=== PATIENT | female | born 1990 | race Caucasian/White ===

== ENCOUNTER 2017-06-03 11:17 | Inpatient (IN) | payer OTHER ==
[2017-06-03 12:00] VITALS: BP 113/51
[2017-06-03 12:15] LABS: BILIRUBIN NEGATIVE (NEGATIVE); BLOOD NEGATIVE (NEGATIVE); CLARITY SL CLOUDY (CLEAR); COLOR YELLOW (YELLOW); GLUCOSE NEGATIVE (NEGATIVE); KETONE NEGATIVE (NEGATIVE); LEUKO ESTERASE TRACE (NEGATIVE); NITRITE NEGATIVE (NEGATIVE); PH 8.5 (5.0-9.0); PROTEIN NEGATIVE (NEGATIVE); UROBILINOGEN 0.2 E.U./dl (0.2-1.0)
[2017-06-03 12:15] LABS: BASO % 0.2 % (0.0-1.0); HEMATOCRIT 39.5 % (37.0-47.0); HEMOGLOBIN 13.4 g/dl (12.0-16.0); LYMPH # 1.3 10*3/uL (1.3-4.4); LYMPH % 16.7 % (27.0-41.0); MEAN CELL VOLUME 86.2 fl (81.0-99.0); MEAN CORPUSCULAR HGB 29.3 pg (27.0-31.0); MEAN CORPUSCULAR HGB CONC 33.9 g/dl (33.0-37.0); MEAN PLATELET VOLUME 9.8 fl (9.6-12.3); MONO # 0.3 10*3/uL (0.1-1.0); MONO % 3.2 % (3.0-9.0); NEUT # 6.4 10*3/uL (2.3-7.9); NEUT % 79.7 % (47.0-73.0); PLATELET COUNT AUTOMATED 367 10*3/uL (130-400); RED BLOOD COUNT 4.58 10*6/uL (4.10-5.10)
[2017-06-03] MEDS ORDERED: LEXAPRO5 M1 PO (12:20)
[2017-06-03 12:22] LABS: PROTHROMBIN TIME 10.3 SECONDS (9.0-12.4)
[2017-06-03 12:29] LABS: ALBUMIN 4.1 gm/dl (3.1-4.5); ALKALINE PHOSPHATASE 62 U/L (45-117); BILIRUBIN, TOTAL 0.6 mg/dl (0.2-1.0); BUN 5 mg/dl (7-24); CARBON DIOXIDE 26 mmol/L (21-32); CHLORIDE 109 mmol/L (98-107); EST GLOM FILT AFRICAN AMERICAN > 60 ml/min; GLUCOSE 106 mg/dL (65-99); POTASSIUM 3.5 mmol/L (3.5-5.1); SGOT/AST 16 IU/L (3-35); SGPT/ALT 18 U/L (12-78); SODIUM 142 mmol/L (136-145); TOTAL PROTEIN 7.1 gm/dL (6.4-8.2)
[2017-06-03 12:32] LABS: BACTERIA 1+; URINE REFLEX COMMENT YES (NO)
[2017-06-03 12:48] LABS: URINE AMPHETAMINES < 1000 (1000ng/ml); URINE BARBITURATES < 200 (200ng/ml); URINE COCAINE < 300 (300ng/ml)
[2017-06-03 16:00] VITALS: BP 116/76
[2017-06-03 20:00] VITALS: BP 103/67
[2017-06-04] VITALS: BP 105/64
[2017-06-04 04:05] VITALS: BP 102/62
[2017-06-04 08:00] VITALS: BP 103/56
[2017-06-04 12:00] VITALS: BP 90/62
[2017-06-04 16:00] VITALS: BP 98/50
[2017-06-04 20:00] VITALS: BP 101/58
[2017-06-05] VITALS: BP 102/60
[2017-06-05 08:00] VITALS: BP 98/54
[2017-06-05 12:00] VITALS: BP 108/56
[2017-06-05 16:00] VITALS: BP 112/60
[2017-06-05 20:00] VITALS: BP 118/47
[2017-06-06] VITALS: BP 96/54
[2017-06-06 07:06] LABS: BASO % 0.4 % (0.0-1.0); EOS # 0.1 10*3/uL (0.0-0.4); EOS % 1.1 % (1.0-4.0); HEMOGLOBIN 13.1 g/dl (12.0-16.0); LYMPH # 3.5 10*3/uL (1.3-4.4); LYMPH % 47.6 % (27.0-41.0); MEAN CELL VOLUME 87.8 fl (81.0-99.0); MEAN CORPUSCULAR HGB 29.5 pg (27.0-31.0); MEAN CORPUSCULAR HGB CONC 33.6 g/dl (33.0-37.0); MEAN PLATELET VOLUME 10.1 fl (9.6-12.3); MONO # 0.5 10*3/uL (0.1-1.0); MONO % 6.5 % (3.0-9.0); NEUT # 3.3 10*3/uL (2.3-7.9); NEUT % 44.1 % (47.0-73.0); PLATELET COUNT AUTOMATED 349 10*3/uL (130-400); RED BLOOD COUNT 4.44 10*6/uL (4.10-5.10); WHITE BLOOD COUNT 7.4 10*3/uL (4.8-10.8)
[2017-06-06 07:18] LABS: EST GLOM FILT AFRICAN AMERICAN > 60 ml/min
[2017-06-06 08:00] VITALS: BP 100/50
[2017-06-06] MEDS ORDERED: ZOFRAN 4 MG ED2 TAB PO (09:09)
[2017-06-06] MEDS ORDERED: ROPINIROLE HYD0.5 MG PO (09:09)
[2017-06-06] MEDS ORDERED: ATARAX,VISTARIL50 MG PO (09:09)
[2017-06-06] MEDS ORDERED: METHOCARBAMOL750 M1 PO (10:13)
== END 2017-06-06 11:25 | disposition home or self-care (01) | DRG 897 ==
LOC: 5E 11:17
PROVIDERS: Hospitalist; Internal Medicine
DX: F11.23 Opioid dependence with withdrawal (principal); E87.8 Other disorders of electrolyte and fluid balance, not elsewhere classified; F32.9 Major depressive disorder, single episode, unspecified; F17.210 Nicotine dependence, cigarettes, uncomplicated; D72.810 Lymphocytopenia; R73.9 Hyperglycemia, unspecified; Z81.1 Family history of alcohol abuse and dependence; Z79.899 Other long term (current) drug therapy; D72.0 Genetic anomalies of leukocytes